=== PATIENT | female | born 1995 | race Caucasian/White ===

== ENCOUNTER 2020-05-24 15:32 | Emergency (ER) | payer BC, SELFPAY ==
[2020-05-24 15:54] VITALS: BP 100/67; PULSE 91; RESP 18; TEMP 36.9; O2SAT 100
[2020-05-24 16:13] LABS: Add Urine Microscopic? YES; Appearance Urine Cloudy (Clear); Bacteria Urine 4+ /hpf; Bilirubin Urine Negative (Negative); Blood Urine Negative (Negative); Color Urine Yellow (Yellow); Glucose Urine UA Negative (Negative); Ketones Urine Negative (Negative); Leukocyte Esterase Ur 2+ LEU/UL (Negative); Mucus Urine Rare /lpf; Nitrate Urine Positive (Negative); Protein Urine 1+ mg/dL (Negative); Specific Grav Ur 1.021 (1.001-1.035); Squamous Epithelial Cell Urine Many /hpf (Few); WBC Urine 51-75 /hpf
[2020-05-24] MEDS: SODIUM CHLORIDE 0.9% IV 1,000 ML 999 ML IV CONT (16:47)
[2020-05-24 16:52] LABS: Basophils Percent Auto 0.3 % (0.2-1.2); Eosinophils Absolute Auto 0.1 K/mm3 (0-0.3); Eosinophils Percent Auto 1.1 % (0-4.4); Hematocrit 34.3 % (37.0-47.0); Hemoglobin 12.2 g/dL (12.0-15.0); Immature Granulocyte Absolute 0.05 K/mm3 (0.00-0.031); Immature Granulocyte Percent A 0.8 % (0-0.5); Lymphocytes Absolute Auto 1.03 K/mm3 (0.9-3.2); Mean Corpuscular HGB Conc 35.6 g/dl (32-36); Mean Corpuscular Hemoglobin 32.5 pg (26-34); Mean Corpuscular Volume 91.5 fl (80-100); Mean Platelet Volume 10.8 fl (7.4-10.4); Monocytes Absolute Auto 0.6 K/mm3 (0.1-0.6); Neutrophils Absolute Auto 4.7 K/mm3 (1.3-6.7); Neutrophils Percent Auto 72.8 % (45.5-73.1); Platelet Count Result 157 k/mm3 (150-375); Red Blood Count 3.75 M/mm3 (4.2-5.4); Red Cell Distribution Width 11.8 % (11.5-14.5); White Blood Count 6.4 K/mm3 (4.5-10.0)
--- NOTE | 2020-05-24 16:57 | ED.GENADULT ---
HPI - General Adult General Chief complaint: Back Pain/Injury Stated complaint: fever/shepherd/back pain/preg Time Seen by Provider: 05/24/20 15:55 Source: patient Mode of arrival: ambulatory Limitations: no limitations History of Present Illness HPI narrative: Patient is a 24-year-old female who presents to emergency department for evaluation of low back pain chills sweats noting that she feels like she may have a urinary tract infection with history of similar occurrence patient is currently being followed by bottle washer machine is 13 weeks G2, P1 has had an ultrasound and has had no high risk changes during this . Patient has not taken anything for her symptoms. Patient denies any vaginal bleeding or or discharge or pelvic pain Related Data Allergies Allergy/AdvReac Type Severity Reaction Status Date / Time No Known Allergies Allergy Unknown Verified 05/24/20 15:58 Review of Systems Review of Systems: All systems reviewed & are unremarkable except as noted in HPI and below PMFSH Family History Family History (Updated 01/03/13 @ 23:49 by DOCTOR UNKNOWN) Other Carcinoma of colon Diabetes mellitus Family history of thyroid disease Social History Social History Smoking status: Never smoker Alcohol intake: never Exam Narrative: Exam Narrative: GENERAL: Well-appearing, well-nourished, and in no acute distress. HEAD: Normocephalic, atraumatic. EYES: PERRLA and EOMI. ENT: Nares clear, no rhinorrhea or epistaxis. Mucous membranes moist. CHEST: Clear to auscultation. No respiratory distress. No wheezes rales or rhonchi HEART: Regular rate and rhythm. No murmur heard. Normal peripheral pulses. ABDOMEN: Soft, nontender, nondistended EXTREMITIES: Normal range of motion. No edema. SKIN: Warm, dry, no rash. NEURO: No focal deficits. Alert and oriented x3. PSYCH: Normal mood and affect. Course Course Emergency Course: Patient in the room aware of case findings treatment plan and diagnosis resting comfortably in the room was hydrated and given IV antibiotics in the emergency department Vital Signs Vital signs: Vital Signs Temperature 98.5 F 05/24/20 15:54 Pulse Rate 91 05/24/20 15:54 Respiratory Rate 18 05/24/20 15:54 Blood Pressure 100/67 05/24/20 15:54 Pulse Oximetry 100 05/24/20 15:54 Temperature 98.5 F 05/24/20 15:54 Pulse Rate 91 05/24/20 15:54 Respiratory Rate 18 05/24/20 15:54 Blood Pressure 100/67 05/24/20 15:54 Pulse Oximetry 100 05/24/20 15:54 Medical Decision Making MDM Narrative Medical decision making narrative: Patient in the room in no distress will be treated for urinary tract infection afebrile nontoxic-appearing felt appropriate for outpatient reevaluation agreeing to follow with her bottle washer machine as planned and given reasons to return Vital Signs Vital Signs: Vital Signs Temperature 98.5 F 05/24/20 15:54 Pulse Rate 91 05/24/20 15:54 Respiratory Rate 18 05/24/20 15:54 Blood Pressure 100/67 05/24/20 15:54 Pulse Oximetry 100 05/24/20 15:54 Temperature 98.5 F 05/24/20 15:54 Pulse Rate 91 05/24/20 15:54 Respiratory Rate 18 05/24/20 15:54 Blood Pressure 100/67 05/24/20 15:54 Pulse Oximetry 100 05/24/20 15:54 Lab Data Result diagrams: 05/24/20 16:38 05/24/20 16:38 Labs: Lab Results 05/24/20 05/24/20 05/24/20 Range/Units 16:00 16:38 16:38 WBC 6.4 (4.5-10.0) K/mm3 RBC 3.75 L (4.2-5.4) M/mm3 Hgb 12.2 (12.0-15.0) g/dL Hct 34.3 L (37.0-47.0) % MCV 91.5 (80-100) fl MCH 32.5 (26-34) pg MCHC 35.6 (32-36) g/dl RDW 11.8 (11.5-14.5) % Plt Count 157 (150-375) k/mm3 MPV 10.8 H (7.4-10.4) fl Immature Gran % (Auto) 0.8 H (0-0.5) % Neut % (Auto) 72.8 (45.5-73.1) % Lymph % (Auto) 16.0 L (18.3-44.2) % Braxton % (Auto) 9.0 H (2.6-8.5) % Eos % (Auto) 1.1 (0
[2020-05-24 16:58] LABS: Anion Gap 7 mmol/L (8-16); Blood Urea Nitrogen 11 mg/dL (7-17); Calcium 8.5 mg/dL (8.4-10.2); Carbon Dioxide 25 mmol/L (22-30); Chloride 101 mmol/L (98-107); Estimated CRCL calculation 96 ml/min; Estimated Glomerular Filt Rate > 60; Glucose 85 mg/dL (65-105); Potassium 3.9 mmol/L (3.4-5.0); Sodium 133 mmol/L (137-145)
[2020-05-24 18:32] VITALS: BP 110/78; PULSE 87; RESP 18; O2SAT 100
== END 2020-05-24 18:33 | disposition home or self-care (01) ==
PROVIDERS: Emergency Medicine Emergency Medical Services; Emergency Provider Emergency Medicine
DX: O23.90 Unspecified genitourinary tract infection in pregnancy, unspecified trimester (principal); Z3A.13 13 weeks gestation of pregnancy
CPT/HCPCS: 36415; 80048; 81001; 85025; 87077; 87086; 87088; 87186; 96365; 96375; 99284; J0131; J0696; J7030